=== PATIENT | female | born 1975 | race Caucasian/White ===

== ENCOUNTER 2022-10-01 13:55 | Emergency (ER) | payer BC ==
[~2022-10-01] VITALS: Ht 162.6 cm; Wt 99.8 kg
[2022-10-01 14:06] VITALS: BP_SYST 110
--- NOTE | 2022-10-01 14:15 | NUR ---
PT BIBA AWAKE AND ALERT AOX4. NO SOB OR DISTRESS. PT BROUGHT IN FOR L SIDE NUMBNESS. PT DENIES N/V. PT DENIES PAIN.
--- NOTE | 2022-10-01 14:16 | NUR ---
Patient to ER bed 2 to gown for evaluation. Side rails up. Report given to EUGENIO BROWN.
--- NOTE | 2022-10-01 14:17 | NUR ---
ER at bedside examining patient.
[2022-10-01 15:14] LABS: BASOPHILS % (AUTO) 0.4 % (0.0-2.0); EOSINOPHILS # (AUTO) 0.1 K/uL (0.0-0.4); EOSINOPHILS % (AUTO) 0.9 % (0.0-4.0); HEMATOCRIT 29.5 % (36-48); HEMOGLOBIN 9.7 g/dL (12.0-16.0); LYMPHOCYTES # (AUTO) 1.2 K/uL (1.0-5.5); LYMPHOCYTES % (AUTO) 20.7 % (20.5-51.5); MEAN CORPUSCULAR HEMOGLOBIN 27 pg (27-31); MEAN CORPUSCULAR HGB CONC 33 % (32-36); MEAN CORPUSCULAR VOLUME 82 fL (79.0-98.0); MONOCYTES # (AUTO) 0.4 K/uL (0.0-1.0); MONOCYTES % (AUTO) 7.1 % (1.7-9.3); NEUTROPHILS # (AUTO) 4.1 K/uL (1.8-7.7); NEUTROPHILS % (AUTO) 70.9 % (40.0-70.0); PLATELET COUNT (AUTO) 376 K/uL (130-430); RED BLOOD CELL COUNT(AUTO) 3.62 MIL/uL (4.2-6.2); RED CELL DISTRIBUTION WIDTH 15.5 % (9.0-15.0); WHITE BLOOD COUNT (AUTO) 5.8 K/uL (4.8-10.8)
[2022-10-01 15:20] LABS: ANION GAP 8 (5-15); CALCIUM 9.1 mg/dL (8.4-11.0); CHLORIDE 104 mmol/L (98-107); CREATININE 1.04 mg/dL (0.55-1.30); GLUCOSE 100 mg/dL (70-99); UREA NITROGEN, BLOOD 19 mg/dL (8-21)
[2022-10-01 15:27] LABS: INR 1.1 (0.8-1.2)
[2022-10-01 15:34] LABS: ALANINE AMINOTRANSFERASE 19 U/L (12-78); ALBUMIN 3.7 g/dL (3.4-4.8); ASPARTATE AMINOTRANSFERASE 17 U/L (10-37); TOTAL BILIRUBIN 0.2 mg/dL (0.0-1.0)
[2022-10-01 15:40] LABS: GFR AFRICAN AMERICAN 73 mL/min (>90)
[2022-10-01] MEDS ORDERED: iohexoL 350 mgI/mL, 100 ML INFUS..BTL IV ONE (16:14)
[2022-10-01 18:44] VITALS: BP_SYST 110
--- NOTE | 2022-10-01 18:45 | NUR ---
Patient to be transferred to [facility] . Is being transferred due to higher level of care. Receiving facility has accepting physician and available space. ER physician has signed transfer form. Patient or responsible green party has agreed to transfer and signed form. Patient belongings inventoried and will be sent with patient. Copy of nursing notes, lab reports, EKG, Physicians Orders and X-rays to be sent with patient. Report called to JASPREET at receiving facility. Receiving physician is MASTER. A ambulance service has been called for transfer. ETA is 20.
== END 2022-10-01 18:44 | disposition short-term general hospital (02) ==
LOC: SED 13:55
DX: G45.9 Transient cerebral ischemic attack, unspecified (principal); R53.1 Weakness; I10 Essential (primary) hypertension; Z79.899 Other long term (current) drug therapy
CPT/HCPCS: 99285; 70496; 71045; 80053; 84703; 85025; 85610; 85730; 84484; 36415; 93005; 70498; 70450; 76376; Q9967